=== PATIENT | male | born 1965 | race Caucasian/White ===

== ENCOUNTER 2016-12-13 12:37 | Outpatient (CLI) | payer MEDICAID | END 2016-12-13 12:38 | disposition home or self-care (01) | DX: J45.20 Mild intermittent asthma, uncomplicated (principal); I10 Essential (primary) hypertension; F17.209 Nicotine dependence, unspecified, with unspecified nicotine-induced disorders; Z13.1 Encounter for screening for diabetes mellitus; E66.9 Obesity, unspecified ==

== ENCOUNTER 2017-01-02 11:26 | Outpatient (CLI) | payer MEDICAID | END 2017-01-02 11:27 | disposition home or self-care (01) | DX: G47.30 Sleep apnea, unspecified (principal); G47.8 Other sleep disorders; R06.83 Snoring; G47.10 Hypersomnia, unspecified ==